=== PATIENT | male | born 2000 | race Two or more races ===

== ENCOUNTER 2024-08-05 11:15 | Emergency (ER) | payer BC, SELFPAY ==
[2024-08-05 11:32] VITALS: BMI 36.0
[2024-08-05 11:33] VITALS: BP 139/84; PULSE 86; RESP 20; TEMP 37.2; O2SAT 96
[2024-08-05] MEDS: IBUPROFEN TAB 400 MG TABLET 800 MG PO (11:38)
--- NOTE | 2024-08-05 11:39 | EDNOTE_ITS ---
ED Ear RME/HPI General Chief complaint: Ear Stated complaint: RIGHT EAR PAIN SINCE YESTERDAY Time Seen by Provider: 08/05/24 11:24 Arrival date/time: 08/05/24 11:15 23-year-old male presents emergency department today complains of right ear pain and right ear discharge patient for symptoms ongoing since yesterday patient reports no fever nausea or vomiting no significant medical problems Limitations: no limitations Related Data Previous Rx's ?Medication ?Instructions ?Recorded naproxen 375 mg tablet 375 mg PO BID PRN pain #30 tabs 02/11/19 amoxicillin 875 mg-potassium 1 tab PO Q12H #20 tabs 09/26/19 clavulanate 125 mg tablet (Augmentin) ibuprofen 800 mg tablet 800 mg PO TID PRN pain #20 tabs 09/26/19 amoxicillin 875 mg-potassium 1 tab PO BID 7 days #14 tabs 08/05/24 clavulanate 125 mg tablet ibuprofen 800 mg tablet 800 mg PO TID PRN pain #30 tabs 08/05/24 ofloxacin 0.3 % ear drops 10 drop otic (ear) QDAY 10 days 08/05/24 #10 mL Allergies Allergy/AdvReac Type Severity Reaction Status Date / Time No Known Allergies Allergy Verified 08/05/24 11:18 Review of Systems Review of Systems Systems Reviewed: All systems reviewed, normal except as documented Constitutional Constitutional: Reports system reviewed and no additional complaints, except as documented, Denies fever(s) and Denies headache(s) Eyes Eyes: Reports system reviewed and no additional complaints, except as documented and Denies blurry vision ENT Ears, Nose, Mouth, and Throat: Reports system reviewed and no additional complaints, except as documented, Reports ear discharge, Reports otalgia, Denies headache(s), Denies nasal congestion and Denies nasal discharge Cardiovascular Cardiovascular: Reports system reviewed and no additional complaints, except as documented, Denies chest pain and Denies dyspnea Respiratory Respiratory: Reports system reviewed and no additional complaints, except as documented, Denies chest congestion, Denies cough and Denies dyspnea Gastrointestinal Gastrointestinal: Reports system reviewed and no additional complaints, except as documented and Denies abdominal pain Integumentary/Breasts Skin/Breast: Reports system reviewed and no additional complaints, except as documented and Denies rash Neurologic Neurologic: Reports system reviewed and no additional complaints, except as documented, Reports as per HPI and Denies headache(s) Past Medical History Past Medical History NEUROLOGIC: Negative Neurological Disorders CARDIAC: Negative Cardiac Disorders ED Exam General Limitations: Present no limitations General appearance: Present alert and in no apparent distress Head Head exam: Present atraumatic Eye Eye exam: Present normal appearance, PERRL and EOMI ENT ENT exam: Present mucous membranes moist Expanded ENT Exam TM/Canal exam: Right TM: erythema, bulging, canal discharge and canal tenderness Neck Neck exam: Present normal inspection, full ROM and trachea midline Chest Chest inspection: Present normal inspection and symmetric chest wall rise Respiratory Respiratory exam: Present normal lung sounds bilaterally Cardiovascular Cardiovascular exam: Present regular rate, normal rhythm and normal heart sounds Abdominal Exam Abdominal exam: Present soft and normal bowel sounds Extremities Exam Extremities exam: Present normal inspection and full ROM Back Exam Back exam: Present normal inspection and full ROM Neurological Exam Neurological exam: Present alert, oriented X3 and CN II-XII intact Psychiatric Psychiatric exam: Present normal affect and normal mood Skin Skin exam: Present warm, dry, intact and normal color Course Quality Measures none Orders Category Date Time Status Bedside Blood Glucose NOW Care 08/05/24 11:33 Completed Ibuprofen Tab [Motrin Tab] Med 08/05/24 11:33 Discontinued 800 mg PO X1 ONE Vital Signs Vital signs: Vital Signs Temperature 98.9 F 08/05/24 11:33 Pulse Rate 86 08/05/24 11:33 Respiratory Rate 20 08/05/24 11:33 Blood Pressure 139/84 H 08/05/24 11:33 Pulse Oximetry (%) 96 08/05/24 11:33 Oxygen Delivery Method Room Air 08/05/24 11:33 O2 saturation 96% room air within normal limits Ear Patient data External records reviewed:: [facility] previous records Clinical information provided by:: patient Social determinants that could affect healthcare access:: none Patient has the following chronic illnesses:: None How is presenting disease/condition affected by chronic disease/condition?: no chronic disease Evaluation data The following diagnostics were reviewed and interpreted by me:: other (specify) (N/A) Lab and/or radiology exams considered but not ordered:: Consider not ordered Interpretation Summary: N/A Medications / Prescriptions Medications or Prescriptions considered but not ordered:: Given Medication administrations:: Medication Administration History Discontinued Medications Ibuprofen (Ibuprofen Tab 400 Mg Tablet) 800 mg PO X1 ONE Stop: 08/05/24 11:34 Last Admin: 08/05/24 11:38 Dose: 800 mg Documented By: LIUDMILA Given Consultations Consultation(s) initiated? (list below): No Diagnosis Ear Differential Diagnosis: otitis externa and otitis media Most likely diagnosis given after review of the tests above:: Otitis externa Admission Indicated Admission indicated?: not indicated Admission Request Was there a request for admission?: No Disposition Plan Disposition Plan: Discharge Discharge Attestation Discharge Attestation: The patient and all family members were given an opportunity to ask questions and understood the discharge instructions. Discharge instructions specifically effects, indications for sooner follow up or return to the emergency department, and the expected course of current diagnosis. Patient condition: Stable Medical Decision Making MDM Narrative MDM Narrative: 23-year-old male presents emergency department today complains of right ear pain and right ear discharge patient for symptoms ongoing since yesterday patient reports no fever nausea or vomiting no significant medical problems On exam patient appears to have otitis externa with drainage from the right ear patient's TM is also erythematous Patient's blood sugar was checked and is 127 Patient discharged home in no distress to follow-up with primary care doctor in the next 24 to 48 hours and for any worsening symptoms to return to the ER immediately Differential Diagnosis Differential Diagnosis: Otitis media, otitis externa Medical Records Medical records reviewed: Yes I reviewed the patient's medical records. Discharge Plan Plan Patient Disposition: HOME (Self Care) Disposition Comment: Stable Prescriptions/Referrals Prescriptions/Med Rec: New ibuprofen 800 mg tablet 800 mg PO TID PRN (Reason: pain) Qty: 30 0RF ofloxacin 0.3 % drops 10 drop otic (ear) QDAY 10 Days Qty: 10 0RF amoxicillin-pot clavulanate 875-125 mg tablet 1 tab PO BID 7 Days Qty: 14 0RF No Action amoxicillin-pot clavulanate [Augmentin] 875-125 mg tablet 1 tab PO Q12H Qty: 20 0RF ibuprofen 800 mg tablet 800 mg PO TID PRN (Reason: pain) Qty: 20 0RF naproxen 375 mg tablet 375 mg PO BID PRN (Reason: pain) Qty: 30 0RF Problem List Clinical Impression: Other otitis externa, right ear Patient/Caregiver Discharge Instructions Education Materials: ED External Ear Infection (Adult) Additional Instructions: Please follow up with your primary care doctor in the next 24-48hrs for any worsening symptoms return here immediately Print Language: Czech Stand Alone Forms: Gaby Award Info., Work/School Release, Patient Portal Info Letter PA/[employer] Supervising Physician PA/[employer] Supervising Physician: Dr Ro
== END 2024-08-05 12:10 | disposition home or self-care (01) ==
LOC: SERX 11:51
PROVIDERS: Emergency Provider Emergency Medicine; PCP Internal Medicine
DX: H60.91 Unspecified otitis externa, right ear (principal)
CPT/HCPCS: 99282; A9270

== ENCOUNTER → 2024-12-17 | Outpatient (CLI) | payer BC, SELFPAY ==
--- NOTE | 2024-12-17 10:18 | XR_ITS ---
Examination: Hand, right 3 views Technique: Hand AP, oblique, lateral 3 views Date and time of exam: December 17, 2024 1029 hours INDICATIONS: Right hand pain this week. FINDINGS: Normal bone density No acute fracture No dislocation No foreign body No erosive or other significant arthritic change IMPRESSION: No fracture No erosive or other significant arthritic change
--- NOTE | 2024-12-17 10:19 | XR_ITS ---
Examination: Wrist, right 3 views Technique: Wrist AP, oblique, lateral 3 views Date and time of exam: December 17, 2024 1029 hours INDICATIONS: Wrist pain months. FINDINGS: Normal bone density. No fracture. The distal ulna is mildly dorsally positioned on the lateral view No avascular necrosis IMPRESSION: The distal ulna is mildly dorsally positioned on the lateral view, clinical correlation advised, recommend follow-up true lateral view the wrist as clinically warranted No fracture No erosive or other significant arthritic change
== END | disposition home or self-care (01) ==
PROVIDERS: PCP Internal Medicine; Referring Provider Internal Medicine; Visit Provider Internal Medicine
DX: M79.641 Pain in right hand (principal); M25.531 Pain in right wrist
CPT/HCPCS: 73110; 73130

== ENCOUNTER → 2024-12-25 | Outpatient (CLI) | payer BC, SELFPAY ==
[2024-12-25 10:19] LABS: Basophils # (Auto) 0.1 Thou/mm3 (0.0-0.2); Basophils % (Auto) 1 % (0-2.5); Eosinophils # (Auto) 0.4 Thou/mm3 (0.0-0.5); Eosinophils % (Auto) 4 % (0-10); Hematocrit 45.8 % (41.0-53.0); Hemoglobin 15.8 g/dL (13.5-16.0); Immature Granulocytes % (Auto) 1 % (0-0); Immature Granulocytes Auto 0.06 Thou/mm3 (0.00-0.00); Lymphocytes # (Auto) 2.1 Thou/mm3 (1.0-4.8); Lymphocytes % (Auto) 22 % (10-50); Mean Corpuscular HGB Conc 34.5 g/dl (31.0-37.0); Mean Corpuscular Hemoglobin 30.7 pg (25.0-35.0); Mean Corpuscular Volume 89 fL (80-100); Monocytes # (Auto) 1.2 Thou/mm3 (0.0-0.8); Monocytes % (Auto) 13 % (0-12); Neutrophils # (Auto) 5.7 Thou/mm3 (1.8-7.7); Neutrophils % (Auto) 61 % (37-80); Nucleated Red Blood Cell % 0 /100 WBC (0); Platelet Count 241 Thou/mm3 (140-440); RDW Standard Deviation 40.9 fL (35.1-43.9); Red Blood Count 5.15 Miln/mm3 (4.50-5.90); White Blood Count 9.5 Thou/mm3 (3.8-10.6)
[2024-12-25 10:30] LABS: Glucose Estimated Average 103 mg/dL (80-131); Hemoglobin A1C 5.2 % Hgb (4.8-6.0)
[2024-12-25 10:39] LABS: Vitamin D 25 Hydroxy Total 9.8 ng/mL (7.3-40.2)
[2024-12-25 10:41] LABS: Alanine Aminotransferase 29 U/L (10-49); Albumin, Serum 4.6 gm/dL (3.5-5.0); Albumin/Globulin Ratio 2.1 (1.2-2.2); Alkaline Phosphatase 80 U/L (46-116); Anion Gap 9 (7-16); Aspartate Amino Transferase 20 U/L (0-34); BUN/Creatinine Ratio 10 Ratio (12-20); Bilirubin,Total 0.9 mg/dL (0.3-1.2); Blood Urea Nitrogen 10 mg/dL (9-23); Calcium 9.1 mg/dL (8.3-10.6); Calcium (Corrected) 9.1 mg/dL (8.5-10.1); Carbon Dioxide 29.3 mMol/L (20.0-31.0); Cardiac Risk Estimate 4.4 RATIO (4.0-6.7); Chloride 106 mMol/L (98-107); Cholesterol 159 mg/dL (132-200); Free T4 (Free Thyroxine) 1.24 ng/dL (0.89-1.76); Globulin 2.2 gm/dL (2.3-3.5); Glucose 96 mg/dL (74-106); HDL Cholesterol 36 mg/dL (40-60); LDL Cholesterol,Calculated 86 mg/dL (0-130); Osmolality,Calculated 285 (275-295); Potassium 4.4 mMol/L (3.4-5.1); Sodium 144 mMol/L (136-145); Thyroid Stimulating Hormone 2.52 uIU/mL (0.55-4.78); Total Protein 6.8 gm/dL (5.7-8.2); Triglycerides 184 mg/dL (30-150); eGFR > 60 See Note
== END | disposition home or self-care (01) ==
LOC: COPL 09:17
PROVIDERS: PCP Internal Medicine; Referring Provider Internal Medicine; Visit Provider Internal Medicine
DX: Z00.00 Encounter for general adult medical examination without abnormal findings (principal); E55.9 Vitamin D deficiency, unspecified
CPT/HCPCS: 36415; 80053; 80061; 82306; 83036; 84439; 84443; 85025

== ENCOUNTER 2025-02-26 11:16 | Emergency (ER) | payer BC, SELFPAY ==
[2025-02-26 11:48] VITALS: BP 128/60; PULSE 88; RESP 18; TEMP 36.9; O2SAT 100
--- NOTE | 2025-02-26 11:54 | XR_ITS ---
Examination: Wrist, right 3 views Technique: Wrist AP, oblique, lateral 3 views Date and time of exam: February 26, 2025 1225 hours INDICATIONS: Right wrist pain beginning one month ago. FINDINGS: No fracture or dislocation Mild narrowing radiocarpal joint IMPRESSION: No fracture or dislocation
--- NOTE | 2025-02-26 12:51 | PD.EDHAND ---
Upper Extremity Injury RME/HPI General Chief Complaint: Hand/Wrist Problems Stated Complaint: RIGHT WRIST PAIN X SEVERAL WKS; SEEN PRIMARY Time Seen by Provider: 02/26/25 11:20 Arrival date/time: 02/26/25 11:16 24-year-old male presents to the emergency department today for complaints of right wrist pain ongoing for the last several weeks Limitations: no limitations Related Data Previous Rx's ?Medication ?Instructions ?Recorded naproxen 375 mg tablet 375 mg PO BID PRN pain #30 tabs 02/11/19 amoxicillin 875 mg-potassium 1 tab PO Q12H #20 tabs 09/26/19 clavulanate 125 mg tablet (Augmentin) ibuprofen 800 mg tablet 800 mg PO TID PRN pain #20 tabs 09/26/19 ibuprofen 800 mg tablet 800 mg PO TID PRN pain #30 tabs 08/05/24 Allergies Allergy/AdvReac Type Severity Reaction Status Date / Time No Known Allergies Allergy Verified 02/26/25 11:20 Review of Systems Review of Systems Systems Reviewed: All systems reviewed, normal except as documented Constitutional Constitutional: Reports system reviewed and no additional complaints, except as documented, Denies fever(s) and Denies headache(s) Eyes Eyes: Reports system reviewed and no additional complaints, except as documented and Denies blurry vision ENT Ears, Nose, Mouth, and Throat: Reports system reviewed and no additional complaints, except as documented, Denies headache(s), Denies nasal congestion and Denies nasal discharge Cardiovascular Cardiovascular: Reports system reviewed and no additional complaints, except as documented, Denies chest pain and Denies dyspnea Respiratory Respiratory: Reports system reviewed and no additional complaints, except as documented, Denies chest congestion, Denies cough and Denies dyspnea Gastrointestinal Gastrointestinal: Reports system reviewed and no additional complaints, except as documented and Denies abdominal pain Musculoskeletal Musculoskeletal: Reports system reviewed and no additional complaints, except as documented, Reports arthralgias, Denies deformity and Denies joint swelling Integumentary/Breasts Skin/Breast: Reports system reviewed and no additional complaints, except as documented and Denies rash Neurologic Neurologic: Reports system reviewed and no additional complaints, except as documented, Reports as per HPI and Denies headache(s) Past Medical History Past Medical History NEUROLOGIC: Negative Neurological Disorders CARDIAC: Negative Cardiac Disorders or Congestive Heart Failure RESPIRATORY: Positive Asthma; Negative Chronic Obstructive Pulmonary Disease (COPD) GENITOURINARY: Negative Renal Disease MUSCULOSKELETAL: Positive Musculoskeletal Disorders (rhabdomyolysis 11/06/18 after excessive exercise ) ENDOCRINE: Negative Diabetes Mellitus Type 1 or Diabetes Mellitus Type 2 Social History SMOKING STATUS: Never smoker ED Exam General Limitations: Present no limitations General appearance: Present alert and in no apparent distress Head Head exam: Present atraumatic, normocephalic and normal inspection Eye Eye exam: Present normal appearance, PERRL and EOMI; Absent conjunctival injection ENT ENT exam: Present normal exam, normal oropharynx and mucous membranes moist Neck Neck exam: Present normal inspection, full ROM and trachea midline Chest Chest inspection: Present normal inspection and symmetric chest wall rise Respiratory Respiratory exam: Present normal lung sounds bilaterally; Absent respiratory distress Cardiovascular Cardiovascular exam: Present regular rate, normal rhythm and normal heart sounds Abdominal Exam Abdominal exam: Present soft; Absent distention, tenderness, guarding, rebound or rigidity Extremities Exam Extremities exam: Present normal inspection, full ROM, tenderness and normal capillary refill; Absent joint swelling Back Exam Back exam: Present normal inspection and full ROM Neurological Exam Neurological exam: Present alert, oriented X3 and CN II-XII intact Psychiatric Psychiatric exam: Present normal affect and normal mood Skin Skin exam: Present warm, dry, intact and normal color Course Quality Measures none Orders Category Date Time Status XR wrist comp RT min 3V Stat Exams 02/26/25 11:54 Completed Vital Signs Vital signs: Vital Signs Temperature 98.5 F 02/26/25 11:48 Pulse Rate 88 02/26/25 11:48 Respiratory Rate 18 02/26/25 11:48 Blood Pressure 128/60 02/26/25 11:48 Pulse Oximetry (%) 100 02/26/25 11:48 Oxygen Delivery Method Room Air 02/26/25 11:48 O2 saturation 100% room air with normal Extremity Injury MDM Narrative MDM Narrative:: 24-year-old male presents to the emergency department today for complaints of right wrist pain ongoing for the last several weeks On exam patient well-appearing patient does not appear toxic no acute distress Patient is full range of motion of the wrist to make a fist and move all fingers without difficulty Imaging of the right wrist obtained no acute fracture dislocation noted explained to the patient should symptoms persist or worsen he has to follow-up with his PCP and have an outpatient MRI and further evaluation Patient discharged home in no distress to follow-up with primary care doctor in the next 24 to 48 hours and for any worsening symptoms to return to the ER immediately Patient data External records reviewed:: [facility] previous records Clinical information provided by:: patient Social determinants that could affect healthcare access:: none Patient has the following chronic illnesses:: None How is presenting disease/condition affected by chronic disease/condition?: no chronic disease Evaluation data The following diagnostics were reviewed and interpreted by me:: radiology exam(s) Lab and/or radiology exams considered but not ordered:: Radiology obtain Interpretation Summary: Reviewed by me Medications / Prescriptions Medications or Prescriptions considered but not ordered:: No med Medication administrations:: No med Consultations Consultation(s) initiated? (list below): No Diagnosis Upper Extremity Injury Differential Diagnosis: sprain and strain of wrist and fracture of wrist Most likely diagnosis given after review of the tests above:: Sprain wrist Admission Indicated Admission indicated?: not indicated Admission Request Was there a request for admission?: No Disposition Plan Disposition Plan: Discharge Discharge Attestation Discharge Attestation: The patient and all family members were given an opportunity to ask questions and understood the discharge instructions. Discharge instructions specifically effects, indications for sooner follow up or return to the emergency department, and the expected course of current diagnosis. Patient condition: Stable Discharge Plan Plan Patient Disposition: HOME (Self Care) Discharge Disposition comment: Stable Prescriptions/Referrals Prescriptions/Med Rec: No Action amoxicillin-pot clavulanate [Augmentin] 875-125 mg tablet 1 tab PO Q12H Qty: 20 0RF ibuprofen 800 mg tablet 800 mg PO TID PRN (Reason: pain) Qty: 20 0RF naproxen 375 mg tablet 375 mg PO BID PRN (Reason: pain) Qty: 30 0RF ibuprofen 800 mg tablet 800 mg PO TID PRN (Reason: pain) Qty: 30 0RF Referrals: Yandel Vieyra MD [Primary Care Provider] - 02/27/25 Problem List Clinical Impression: Right wrist sprain Patient/Caregiver Discharge Instructions Education Materials: ED Wrist Sprain Additional Instructions: Please see your PCP request outpatient MRI and referral to orthopedics for worsening symptoms return immediately Print Language: Spanish Stand Alone Forms: Gaby Award Info., Patient Portal Info Letter PA/LUCITA Supervising Physician FERNANDA/LUCITA Supervising Physician: Dr. Ochoa
== END 2025-02-26 13:08 | disposition home or self-care (01) ==
PROVIDERS: Emergency Provider Emergency Medicine; PCP Internal Medicine
DX: S63.501A Unspecified sprain of right wrist, initial encounter (principal); X58.XXXA Exposure to other specified factors, initial encounter
CPT/HCPCS: 73110; 99283